=== PATIENT | male | born 1985 | race African-American/Black ===

== ENCOUNTER 2018-05-26 06:34 | Emergency (ER) | payer BC, OTHER ==
[~2018-05-26] VITALS: Ht 182.9 cm; Wt 97.5 kg
[2018-05-26 06:58] VITALS: BP 128/66
--- NOTE | 2018-05-26 07:13 | NUR ---
Report Given to Nestor MENDOZA for [facility].
--- NOTE | 2018-05-26 07:14 | NUR ---
received report from Rose MENDOZA for [facility]amis.
--- NOTE | 2018-05-26 07:59 | NUR ---
PT LEFT IN STABLE CONDITION, REFUSED TO SIGN DISCHARGE PAPER. HEALTH TEACHING AND EDUCATION RENDERED AND ABLE TO UNDERSTAND INSTRUCTIONS. INFORMED TO FOLLOW UP WITH PMD.
== END 2018-05-26 07:59 | disposition home or self-care (01) ==
LOC: ER 06:36
DX: G89.18 Other acute postprocedural pain (principal); Z98.890 Other specified postprocedural states
CPT/HCPCS: 99281; A4606; Z7610; Z7502

== ENCOUNTER 2019-01-14 02:38 | Emergency (ER) | payer BC ==
[~2019-01-14] VITALS: Ht 182.9 cm; Wt 102.1 kg
[2019-01-14 02:43] VITALS: BP 141/80
--- NOTE | 2019-01-14 02:50 | NUR ---
BIBSELF FROM HOME. TO ER BED 9. AAOX4. AMBULATORY. NAD, BRAETHING EVEN AND UNLABORED. C/O RED STREAK/SCRATCH AFTER HAVING TATTOO DONE ON RFA. AWAITING MD FOR EVAL.
[2019-01-14 04:00] LABS: BASOPHILS % (AUTO) 0.2 % (0.0-2.0); HEMATOCRIT 41 % (39-51); HEMOGLOBIN 13.3 g/dL (13.5-17.5); LYMPHOCYTES % (AUTO) 20.5 % (20.0-44.0); MEAN CORPUSCULAR HGB CONC 32 g/dl (31.0-36.0); MEAN CORPUSCULAR VOLUME 74 fL (80-96); MONOCYTES # (AUTO) 0.6 /CMM (0.1-1.30); NEUTROPHILS % (AUTO) 72.3 % (43.0-81.0); PLATELET COUNT (AUTO) 243 /CMM (150-450); WHITE BLOOD COUNT (AUTO) 9.7 K/uL (4.3-11.0)
[2019-01-14 04:04] LABS: CALCIUM, SERUM 8.9 mg/dL (8.5-10.1); CREATININE 1.3 mg/dL (0.6-1.3); POTASSIUM 3.9 mmol/L (3.5-5.1)
--- NOTE | 2019-01-14 04:17 | NUR ---
Patient does not wish to proceed with medical care recommended by Yessenia Zafar. Patient given information related to possible complications, up to and including , which could occur as a result of leaving the hospital at this time. Patient verbalizes understanding of risks involved due to leaving against medical advice. Patient has signed AMA form.
== END 2019-01-14 04:25 | disposition left against medical advice (07) ==
LOC: ER 02:41
DX: R22.31 Localized swelling, mass and lump, right upper limb (principal); Z98.890 Other specified postprocedural states
CPT/HCPCS: 36415; 80048-TC; 85025-TC